=== PATIENT | female | born 1955 | race Asian ===

== ENCOUNTER 2020-03-09 08:38 | Outpatient (CLI) | payer OTHER ==
[~2020-03-09 08:38] MED LIST: ASPI81TA45 PO; METF10002 PO; METF500T17 PO; MULT-6 PO; OMEG1CAP23 PO
== END 2020-03-09 23:59 | disposition home or self-care (01) ==
LOC: CARD 08:38
PROVIDERS: ATTEND Family Medicine
DX: Z02.9 Encounter for administrative examinations, unspecified (principal)